=== PATIENT | female | born 1955 | race Hispanic/Latino ===

== ENCOUNTER → 2019-06-02 10:16 | Outpatient (CLI) | payer OTHER, SELFPAY ==
--- NOTE | 2019-05-04 17:03 | HP.PCM_ITS ---
History and Physical Date of Admission: 05/11/19 Pre-Op History and Physical ? HPI: The patient is a 64 year old female presenting for pre-operative visit. She is scheduled for?total vaginal hysterectomy, possible bilateral salpingo- oophorectomy, uterosacral ligament fixation, posterior repair, possible anterior repair, mid urethral sling and cystoscopy, for?symptomatic complete uterovaginal prolapse, cystocele and rectocele, and stress urinary incontinence on?May 11, 2019. ??Procedure discussed along with risks, benefits and c omplications. ?Other alternatives discussed for management. Consent form signed??Yes.? PAST?MEDICAL?HISTORY PAST MEDICAL HISTORY Diagnosis Date ? Hip pain, right ? ? Hypertension ? ? SVT (supraventricular tachycardia) (HCC) ? ? ? PAST?SURGICAL?HISTORY PAST SURGICAL HISTORY Procedure Laterality Date ? COLONOSCOP W/ OR W/O [facility] SPEC ? 01/28/15 ? Colonoscopy ? COLONOSCOP W/ OR W/O [facility] SPEC ? 02/07/2018 ? Colonoscopy ? LAPAROSCOPIC CHOLEYCYSTECTOMY ? ? ? Cholecystectomy, lap ? LIGATE FALLOPIAN TUBE ? ? ? Tubal ligation ? PAST SURGICAL HISTORY OF ? ? ? left fifth broken ?toe,bunionectomy, heel spur ? TOTAL HIP REPLACEMENT Right 10/28/2016 ? Hip replacement, total ? ? CURRENT?MEDICATIONS Current Outpatient Medications Medication Sig Dispense Refill ? meloxicam (MOBIC) 15 mg tablet Take 1 tablet by mouth once daily. 30 tablet 1 ? verapamil SR (CALAN SR, ISOPTIN SR) 240 mg CR tablet Take 1 tablet by mouth daily at bedtime. 90 tablet 3 ? lisinopril (ZESTRIL, PRINIVIL) 10 mg tablet take 1 tablet by mouth once daily 30 tablet 11 ? No current facility-administered medications for this visit.? ? ALLERGIES:?Morphine; Seasonal Allergies ? PERSONAL HISTORY:? SOCIAL?HISTORY Social History ??Socioeconomic History ?Marital status: ?Spouse name: Rosalio ?Number of children: 4 ?Years of education: 12 ?Highest education level: Not on file ??Occupational History ?Occupation: [employer] ?Employer: [employer] ?Comment: retired ??Social Needs ?Financial resource strain: Not on file ?Food insecurity: ?Worry: Not on file ?Inability: Not on file ?Transportation needs: ?Medical: Not on file ?Non-medical: Not on file ??Tobacco Use ?Smoking status: Former Smoker ?Smokeless tobacco: Never Used ?Tobacco comment: quit 24 years ago ??Substance and Sexual Activity ?Alcohol use: No ?Drug use: No ?Comment: 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 control/protection: Tubal Ligation ??Lifestyle ?Physical activity: ?Days per week: Not on file ?Minutes per session: Not on file ?Stress: Not on file ??Relationships ?Social connections: ?Talks on phone: Not on file ?Gets together: Not on file ?Attends zoroastrian service: Not on file ?Active member of club or organization: Not on file ?Attends meetings of clubs or organizations: Not on file ?Relationship status: Not on file ?Intimate partner violence: ?Fear of current or ex partner: Not on file ?Emotionally abused: Not on file ?Physically abused: Not on file ?Forced sexual activity: Not on file ??Other Topics ?Concerns: ?Not on file ??Social History Narrative ?Not on file ? FAMILY HISTORY:? FAMILY?HISTORY FAMILY HISTORY Problem Relation Age of Onset ? Heart Mother ? ? Heart Father ? ? Diabetes Sister ? ? REVIEW OF SYMPTOMS: GENERAL: denies fevers or chills ENDOCRINOLOGY: has not been on steroids Cardiology : denies palpitations or chest pain Respiratory: denies SOB or cough Hematology: denies history of prolonged bleeding or easy bruising or VTE Allergy: Denies history of personal or family history of allergy to anesthesia ? ? PHYSICAL EXAMINATION: ? VITALS:?Blood pressure 134/86, weight 187 lb (84.8 kg). ? GENERAL:??The patient is well nourished, well hydrated in no acute distress. ?, The patient is oriented to time, place, and person. NECK:?Supple. No lynphadenopathy, normal thyroid, no thyromegaly. LUNGS:?Clear to auscultation bilaterally. no wheezes, rhonchi or rales HEART:?Regular rate and rhythm, Normal heart sounds and No murmurs or gallops Pelvic: ?-Normal external genitalia, normal mons pubis and hair distribution pattern. ?Widened introitus. ?Attenuated perineum. ?No skin lesions or ulcerations. ?Normal anus. ?Normal urethra. ?Vagina with pink rugae. ?Moderate rectocele, prolapse of the cervix to the introitus with Valsalva. ?Second-degree midline cystocele that prolapses to the introitus with Valsalva. ?No vaginal lesions. ?Normal parous cervix, pale pink, smooth, nonfriable. ?Physiological discharge. ?Uterus is small, mobile and nontender. ?No adnexal masses or tenderness. ?Levator strength is 4 out of 5. ?Rectovaginal exam is performed, no masses, normal anal sphincter tone. ?Normal squeeze strength ? ? IMPRESSION:?Stress and mixed urinary incontinence, symptomatic complete uterovaginal prolapse with cystocele rectocele and cervical prolapse. ? PLAN:???The risks/benefits/alternatives and personal involved for the planned?vaginal hysterectomy with possible bilateral salpingo-oophorectomy, posterior repair, possible anterior repair, uterosacral ligament fixation, and?midurethral slinge with cystoscopy?were reviewed with the patient. Her quest ions were answered to her satisfaction and she desires to proceed. ?Consent was signed. ?I reviewed with her postop instructions and expectations. ? ? I have reviewed and updated past medical and surgical history, medications and allergies? Kristi Gamez M.D.
== END ==
PROVIDERS: Family Provider Internal Medicine; PCP Internal Medicine; Referring Provider Obstetrics & Gynecology; Visit Provider Obstetrics & Gynecology
DX: N39.46 Mixed incontinence (principal); Z53.8 Procedure and treatment not carried out for other reasons